=== PATIENT | female | born 1970 | race Caucasian/White ===

== ENCOUNTER 2023-08-26 14:20 | Outpatient (CLI) | payer BC | END 2023-08-26 14:21 | disposition home or self-care (01) | LOC: CSHMRI 14:20 | PROVIDERS: ATTEND Nurse Practitioner Family | DX: M51.16 Intervertebral disc disorders with radiculopathy, lumbar region (principal); M47.817 Spondylosis without myelopathy or radiculopathy, lumbosacral region; M47.26 Other spondylosis with radiculopathy, lumbar region; M48.061 Spinal stenosis, lumbar region without neurogenic claudication; M48.07 Spinal stenosis, lumbosacral region | CPT/HCPCS: 72100; 72148 ==